=== PATIENT | male | born 1980 ===

== ENCOUNTER 2017-09-20 15:40 | Emergency (ER) | payer SELFPAY ==
[~2017-09-20 15:40] MED LIST: Lactated Ringers 1,000 ML IV SCH; Rocuronium 100 MG/10 ML MDV ONE; Rocuronium 50 MG/5 ML Vial IVPUSH ONE; Sodium Chloride 0.9% 1,000 ML IV SCH
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
[2017-09-20 16:16] LABS: CHLORIDE,CL 105 mmol/L (98-110); SODIUM,NA 136 mmol/L (136-146)
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
--- NOTE | 2017-09-23 14:11 | CR ---
EXAM DATE: 09/20/17 PATIENT'S AGE: 36 Patient: SILVA GONZALEZ Facility: [place], [place] Site . Site : 1980 Study: XRay Chest [id number] 5:04:55 PM Ordering Physician: Cuong Kendrick Final Report: Indication: Pain, shortness of breath, trauma. Comparison: None. Findings: Endotracheal tube is noted 6.5 cm above the level of the josiah. Cardiac and mediastinal silhouettes are normal. The pulmonary vasculature is normal. Dense linear scar or atelectasis is noted in the left lower lung. The right lung is free of infiltrate. There is no pneumothorax on this single view exam. Impression: 1. Endotracheal tube in adequate position. 2. Dense linear scar or atelectasis left lower lung. Dictated by Savita Garzon MD @ Sep 20 2017 5:49PM (Electronic Signature) Report Signed by Proxy. MELISSA
--- NOTE | 2017-09-23 14:11 | CR ---
EXAM DATE: 09/20/17 PATIENT'S AGE: 36 Patient: SILVA GONZALEZ Facility: [place], [place] Site . Site : 1980 Study: XRay Pelvis [id number] 5:01:43 PM Ordering Physician: Cuong Kendrick Final Report: Indication: Pain. Findings: Abnormal diastasis of the pubic symphysis is no is noted to 1.2 cm with the right superior rami cephalad to the left superior rami by 2 centimeters. On the single-view exam, no other fracture of the bony pelvis is identified. Bony mineralization is normal. The sacroiliac joints are intact. Hip spaces are preserved. 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 Dictated by Savita Garzon MD @ Sep 20 2017 5:39PM (Electronic Signature) Report Signed by Proxy. MELISSA
== END 2017-09-20 16:43 ==
LOC: MW.ED 15:40
DX: S32.512A Fracture of superior rim of left pubis, initial encounter for closed fracture (principal); S01.01XA Laceration without foreign body of scalp, initial encounter; T07.XXXA Unspecified multiple injuries, initial encounter; V84.5XXA Driver of special agricultural vehicle injured in nontraffic accident, initial encounter
CPT/HCPCS: 31500; 36415; 36430; 71010; 72170; 80053; 82150; 83605; 83690; 85025; 85610; 85730; 86850; 86900; 86901; 86920; 86921; 86922; 93005; 96360; 96365; 99291; 99292; G0390; P9016; 36410; 99282